=== PATIENT | male | born 1980 | race Caucasian/White ===

== ENCOUNTER 2016-04-27 12:56 | Observation (INO) | payer MEDICARE, OTHER ==
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
[~2016-04-27] VITALS: Ht 175.3 cm; Wt 74.0 kg
[~2016-04-27 12:56] MED LIST: NEOSTIGMINE 3 MG/3 ML SYR IV ONE; ONDANSETRON HCL 4 MG/2 ML VIAL IV PUSH ONE; PROPOFOL 200 MG/20 ML AMP IV ONE
[2016-04-27 13:55] VITALS: BP 132/81; PULSE 86; RESP 20; TEMP 97.9; O2SAT 98
[2016-04-27] MEDS ORDERED: LACTATED RINGER'S 1000 ML IV SCH (14:00)
[2016-04-27] MEDS ORDERED: SODIUM CHLORID 0.9% 500 ML IV SCH (14:00)
[2016-04-27] MEDS ORDERED: METOPROLOL TARTRATE 25 MG TAB PO PRN (14:00)
[2016-04-27] MEDS ORDERED: INSULIN HUMAN REGULAR 1,000 UNITS/10 ML VIAL SQ PRN (14:00)
[2016-04-27] MEDS ORDERED: ceFAZolin 1,000 MG/NS 100 ML IV SCH ×2 (14:15)
[2016-04-27] MEDS ORDERED: ceFAZolin INJ 1,000 MG VIAL ONE (15:09)
[2016-04-27] MEDS ORDERED: MIDAZOLAM HCL 2 MG/2 ML VIAL ONE (15:10)
[2016-04-27] MEDS ORDERED: FAMOTIDINE 20 MG/2 ML VIAL ONE (15:10)
[2016-04-27] MEDS ORDERED: LIDOCAINE 2%/EPINEPHrine 1:100,000 30ML MDV ONE (15:11)
[2016-04-27] MEDS ORDERED: BALANCED SALT SOLN OPHT IRRIG 15 ML BTL ONE (15:11)
--- NOTE | 2016-04-27 16:33 | HHI.PR ---
Immediate Post Op Note Procedure Date: Apr 27, 2016 Pre Op Diagnosis: right orbital floor fracture Post Op Diagnosis: mireya Surgeon: Laron Jin Acid Tender(s): lanny jacinto Procedure: open reconstruction of right orbital floor fracture with KLS mesh Complications: none Estimated blood loss: minimal Anesthesia: General, Local (2%lidocaine with 1:100, 000 epi x 1 cc) Drains: None Patient to: PACU Patient Condition: Good Laron Jin [facility] Apr 27, 2016 16:33
[2016-04-27] MEDS ORDERED: *morphine SULFATE 8 MG/ML PERIprocedure ONLY ONE ×3 (17:09→20:02)
[2016-04-27] MEDS ORDERED: methylPREDNISolone SOD SUCC 125 MG/2 ML VIAL ONE (19:41)
[2016-04-27] MEDS: methylPREDNISolone SOD SUCC 125 MG/2 ML VIAL IV SCH (19:45)
[2016-04-27] MEDS ORDERED: MORPHINE SULFATE 4 MG/ML INJ IV PUSH PRN (20:00)
[2016-04-27] MEDS ORDERED: SODIUM CHLOR 0.9% 1000 ML INJ 1,000 ML IV SCH (20:00)
[2016-04-27] MEDS ORDERED: ACETAMINOPHEN/HYDROcodone 325 MG/7.5 MG TAB PO PRN (20:00)
[2016-04-27] MEDS ORDERED: ONDANSETRON HCL 4 MG/2 ML VIAL IV PUSH PRN (20:00)
[2016-04-27] MEDS ORDERED: SODIUM CHLORIDE FLUSH PRN IVF (20:00)
[2016-04-27] MEDS ORDERED: DO NOT ADM ANY ANTICOAGULANT DRUGS XX PRN (20:15)
[2016-04-27 21:45] VITALS: BP 146/88; PULSE 77; RESP 18; TEMP 97.7; O2SAT 96
[2016-04-27] MEDS: SODIUM CHLORIDE FLUSH BID IVF SCH (23:00)
[2016-04-27] MEDS: ceFAZolin 1,000 MG/NS 100 ML IV SCH ×2 (23:00)
[2016-04-28 00:45] VITALS: BP 140/80; PULSE 76; RESP 18; TEMP 98; O2SAT 97
[2016-04-28] MEDS: methylPREDNISolone SOD SUCC 125 MG/2 ML VIAL IV SCH ×2 (02:00→09:04)
[2016-04-28 04:50] VITALS: BP 117/77; PULSE 64; RESP 17; TEMP 96.9; O2SAT 97
[2016-04-28] MEDS: ceFAZolin 1,000 MG/NS 100 ML IV SCH ×2 (06:01)
--- NOTE | 2016-04-28 07:58 | HHI.PR ---
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 last night sneezing and and small amount of blood came out form corner of right eye Objective Vital Signs Date Time Temp Pulse Resp B/P Pulse Ox O2 Delivery O2 Flow Rate FiO2 04/28/16 04:50 96.9 64 17 117/77 97 04/28/16 00:45 98.0 76 18 140/80 97 04/27/16 21:45 97.7 77 18 146/88 96 04/27/16 18:00 97.7 75 12 129/82 95 Room Air 04/27/16 17:45 88 12 132/87 96 Room Air 04/27/16 17:30 78 12 122/85 94 Room Air 04/27/16 17:15 76 15 133/82 92 Room Air 04/27/16 17:00 74 16 131/83 96 Nasal Cannula 2 04/27/16 16:45 75 14 128/83 93 Nasal Cannula 2 04/27/16 16:27 98.0 71 14 144/98 94 Nasal Cannula 2 04/27/16 13:55 97.9 86 20 132/81 98 I/O 04/27/16 04/27/16 04/27/16 04/28/16 04/28/16 04/28/16 07:00 15:00 23:00 07:00 15:00 23:00 Intake Total 1820 ml 900 ml Output Total 520 ml 600 ml Balance 1300 ml 300 ml Intake Oral 820 ml 900 ml IV Total 100 ml Other 900 ml Output Urine Total 500 ml 600 ml Estimated Blood Loss 20 ml # Voids 2 2 # Bowel Movements 0 0 Objective Remarks PERRLA/EOMI no entrapment, + good visual acuity, no blurry no double vision hemostatic, no edema, residual periorbital ecchymosis, with residual subconjunctival hemorrhage wound margins well approximated, lower eye lid in good position Assessment and Plan Assessment and Plan pod 1 s/p reconstruction of right orbital floor fracture with mesh ok to d/.c to home f/up [address] jin [phone] advance to regular diet as tolerated sinus precautions, no strenuous activity/exercises/bending over rx keflex 500 mg #21 and narco 5/325 #15 in chart Laron Jin DMD Apr 28, 2016 07:58
[2016-04-28] MEDS ORDERED: CEPH-460 PO (08:20)
[2016-04-28] MEDS ORDERED: NORC5TAB PO (08:20)
[2016-04-28] MEDS: SODIUM CHLORIDE FLUSH BID IVF SCH (09:04)
[2016-04-28] MEDS ORDERED: methylPREDNISolone ACETATE 80 MG/ML VIAL IM ONE (14:00)
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
[2016-04-29] MEDS ORDERED: PNEUMOCOCCAL POLYVALENT INJ 25 MCG/0.5 ML SYR IM ONE (10:00)
== END 2016-04-28 09:27 | disposition home or self-care (01) ==
LOC: HSDC 12:56 → N05A 21:00
PROVIDERS: ADMIT Dentist Oral and Maxillofacial Surgery; ATTEND Dentist Oral and Maxillofacial Surgery
DX: S02.31XA Fracture of orbital floor, right side, initial encounter for closed fracture (principal); H53.9 Unspecified visual disturbance; Y08.89XA Assault by other specified means, initial encounter; M91.10 Juvenile osteochondrosis of head of femur [Legg-Calve-Perthes], unspecified leg; F17.210 Nicotine dependence, cigarettes, uncomplicated; F12.90 Cannabis use, unspecified, uncomplicated
CPT/HCPCS: 00190; 21407; C1713; G0378; J0690; J2250; J2270; J2405; J2710; J2930; J3010; J7120

== ENCOUNTER → 2017-03-26 | Outpatient (CLI) | payer MEDICARE, OTHER ==
[2017-03-26 09:47] LABS: AUTOMATED NEUTROPHIL # 4.4 TH/MM3 (1.8-7.7); BASOPHIL % 0.2 % (0.0-2.0); EOSINOPHIL % 0.7 % (0.0-4.0); HEMATOCRIT 47.4 % (39.0-51.0); HEMO FLAGS DIFF FINAL; HEMOGLOBIN 16.8 GM/DL (13.0-17.0); LYMPH % 18.5 % (9.0-44.0); LYMPHOCYTE # 1.2 TH/MM3 (1.0-4.8); MEAN CORPUSCULAR HEMOGLOBIN 32.6 PG (27.0-34.0); MEAN CORPUSCULAR HGB CONC 35.4 % (32.0-36.0); MONO % 11.5 % (0.0-8.0); MONOCYTE # 0.7 TH/MM3 (0-0.9); NEUT % 69.1 % (16.0-70.0); PLATELET COUNT 166 TH/MM3 (150-450); RED BLOOD COUNT 5.15 MIL/MM3 (4.50-5.90); RED CELL DISTRIBUTION WIDTH 13.4 % (11.6-17.2); WHITE BLOOD COUNT 6.4 TH/MM3 (4.0-11.0)
[2017-03-26 10:13] LABS: ANION GAP 8 MEQ/L (5-15); BICARBONATE 26.1 MEQ/L (21.0-32.0); BLOOD UREA NITROGEN 11 MG/DL (7-18); CALCIUM 8.9 MG/DL (8.5-10.1); CHLORIDE 102 MEQ/L (98-107); CREATININE 0.88 MG/DL (0.60-1.30); GLOMERULAR FILTRATION RATE 98 ML/MIN (>89); GLUCOSE,FASTING 96 MG/DL (74-99); POTASSIUM 3.8 MEQ/L (3.5-5.1); SODIUM (NA) 136 MEQ/L (136-145)
[2017-03-26 10:16] LABS: BILIRUBIN, URINE NEG (NEG); BLOOD, URINE NEG (NEG); COMMENT (UR) CULT NOT INDICATED; CULTURE IF INDICATED CULT NOT INDICATED; GLUCOSE,URINE NEG (NEG); KETONE, URINE NEG (NEG); NITRITE,URINE NEG (NEG); URINE COLOR LIGHT-YELLOW (YELLW/STRAW); URINE LEUKOCYTE ESTERASE NEG (NEG)
== END ==
LOC: CPRE 08:19
DX: Z01.812 Encounter for preprocedural laboratory examination (principal); Z01.810 Encounter for preprocedural cardiovascular examination; M16.12 Unilateral primary osteoarthritis, left hip
CPT/HCPCS: 36415; 80048; 81001; 85025; 93005

== ENCOUNTER 2017-04-10 10:38 | Inpatient (IN) | payer MEDICARE, OTHER ==
[~2017-04-10] VITALS: Ht 175.3 cm; Wt 75.7 kg
[~2017-04-10 10:38] MED LIST changes: +FEXO180T PO; -NEOSTIGMINE 3 MG/3 ML SYR IV ONE; +NORC5TAB PO; -ONDANSETRON HCL 4 MG/2 ML VIAL IV PUSH ONE; -PROPOFOL 200 MG/20 ML AMP IV ONE
[2017-04-10] MEDS ORDERED: WARF-21 PO (11:16)
[2017-04-10] MEDS ORDERED: VANCOMYCIN 1 GM/200 ML INJ 200 ML IV ONE ×2 (11:38→11:41)
[2017-04-10] MEDS ORDERED: CHLORHEXIDINE GLUCONATE 2 % 1 PACK (2 CLOTHS) TOPICAL PRN (11:45)
[2017-04-10] MEDS ORDERED: POVIDONE IODINE 5% (ANTISEPSIS KIT) 4 APPLICATIONS EACH NARE PRN (11:45)
[2017-04-10] MEDS ORDERED: VANCOMYCIN 1000 MG/NS 250 ML (for <70 kg) IV SCH ×2 (11:45)
[2017-04-10] MEDS ORDERED: SODIUM CHLORID 0.9% 500 ML IV PRN (11:45)
[2017-04-10] MEDS ORDERED: CHLORHEXIDINE GLUCONATE 4% SOLN 120 ML BTL TOPICAL SCH (11:45)
[2017-04-10] MEDS ORDERED: METOPROLOL TARTRATE 25 MG TAB PO PRN (11:45)
[2017-04-10] MEDS ORDERED: ceFAZolin 2 GM PREMIX 50 ML IV SCH (11:45)
[2017-04-10] MEDS ORDERED: INSULIN HUMAN REGULAR 1,000 UNITS/10 ML VIAL SQ PRN (11:45)
[2017-04-10] MEDS ORDERED: LACTATED RINGER'S 1000 ML IV PRN (11:45)
[2017-04-10] MEDS ORDERED: GENTAMICIN SULFATE 80 MG/2 ML VIAL ONE (11:50)
[2017-04-10] MEDS ORDERED: ONDANSETRON HCL 4 MG/2 ML VIAL IV ONE (12:00)
[2017-04-10] MEDS ORDERED: DEXAMETHASONE SOD PHOS 4 MG/ML VIAL IV ONE (12:00)
[2017-04-10] MEDS ORDERED: GLYCOPYRROLATE 1 MG/5 ML SYRINGE IV PUSH ONE (12:00)
[2017-04-10] MEDS ORDERED: LACTATED RINGER'S 1000 ML INJ 1,000 ML IV ONE (12:00)
[2017-04-10] MEDS ORDERED: PROPOFOL 200 MG/20 ML AMP IV ONE (12:00)
[2017-04-10] MEDS ORDERED: ROCURONIUM INJ 50 MG/5 ML SYRINGE IV PUSH ONE (12:00)
[2017-04-10] MEDS ORDERED: NEOSTIGMINE 5 MG/5 ML SYRINGE IV PUSH ONE (12:00)
[2017-04-10] MEDS ORDERED: LIDOCAINE HCL 1% PF 5 ML SYRINGE OTHER ONE (12:00)
[2017-04-10] MEDS ORDERED: ACETAMINOPHEN 1000 MG/100 ML 100 ML IV ONE (12:58)
[2017-04-10] MEDS ORDERED: HYDROmorphone HCL PF 2 MG/ML VIAL ONE (12:59)
[2017-04-10] MEDS ORDERED: BUPIVACAINE/EPINEPHRINE 0.25% PF 30 ML VIAL ONE (13:33)
[2017-04-10] MEDS ORDERED: EXPAREL PERI-ARTICULAR INJECTION (TOTAL VOL. 60 ML) P-ARTICULR SCH ×2 (14:00)
[2017-04-10] MEDS ORDERED: SODIUM CHLORIDE 0.9% IV SCH (15:00)
[2017-04-10] MEDS ORDERED: TRANEXAMIC ACID IV SCH (15:00)
[2017-04-10] MEDS: LACTATED RINGER'S 1000 ML INJ 1,000 ML IV SCH (15:41)
[2017-04-10] MEDS ORDERED: Post-op Orders (for Pharmacy) XX ONE (15:45)
[2017-04-10] MEDS ORDERED: DO NOT ADM ANY ANTICOAGULANT DRUGS PRN (15:45)
[2017-04-10] MEDS ORDERED: ZOLPIDEM TARTRATE 5 MG TAB PO PRN (15:45)
[2017-04-10] MEDS ORDERED: ACETAMINOPHEN/HYDROcodone 325 MG/7.5 MG TAB PO PRN (15:45)
[2017-04-10] MEDS ORDERED: ONDANSETRON HCL 4 MG/2 ML VIAL IVP PRN (15:45)
[2017-04-10] MEDS ORDERED: ALUMINUM/MAGNESIUM/SIMETH 30 ML CUP PO PRN (15:45)
[2017-04-10] MEDS ORDERED: MIDAZOLAM HCL 2 MG/2 ML VIAL ONE (15:49)
--- NOTE | 2017-04-10 16:01 | RADRPT ---
EXAM DATE/TIME: 04/10/2017 14:02 [place] COMPARISON: No previous studies available for comparison. INDICATIONS : Left anterior hip replacement. MEDICAL HISTORY : Arthritis. Smoker. SURGICAL HISTORY : Nephrectomy, side unknown. ENCOUNTER: Initial ACUITY: 1 day PAIN SCORE: Non-responsive. LOCATION: Left anterior hip. CONCLUSION: Fluoroscopic images of left hip prosthesis. Reed Verduzco MD on April 10, 2017 at 15:58 Board Certified Radiologist. This report was verified electronically.
[2017-04-10] MEDS ORDERED: *MEPERIDINE 25 MG INJ VIAL PERIprocedural Use ONLY ONE (16:05)
[2017-04-10] MEDS ORDERED: *morphine SULFATE 10 MG/ML PERIprocedure ONLY ONE ×2 (16:28→17:19)
[2017-04-10 17:50] VITALS: BP 144/83; PULSE 87; RESP 18; TEMP 96.4; O2SAT 97
[2017-04-10] MEDS: ASPIRIN EC 81 MG TABEC PO SCH (18:51)
[2017-04-10] MEDS: ACETAMINOPHEN/HYDROcodone 325 MG/7.5 MG TAB PO PRN (19:40)
[2017-04-10 20:10] VITALS: BP 161/87; PULSE 102; RESP 17; TEMP 95.8; O2SAT 96
[2017-04-10] MEDS: MORPHINE SULFATE 8 MG/ML INJ IV PUSH PRN (21:29)
[2017-04-11 00:05] VITALS: BP 127/81; PULSE 78; RESP 17; TEMP 96.8; O2SAT 96
[2017-04-11] MEDS: ACETAMINOPHEN/HYDROcodone 325 MG/7.5 MG TAB PO PRN ×6 (00:08→21:52)
[2017-04-11 04:07] VITALS: BP 132/74; PULSE 75; RESP 17; TEMP 97.7; O2SAT 98
[2017-04-11] MEDS: LACTATED RINGER'S 1000 ML INJ 1,000 ML IV SCH ×2 (04:11→09:17)
[2017-04-11 07:37] VITALS: BP 118/84; PULSE 57; RESP 18; TEMP 96.6; O2SAT 98
[2017-04-11] MEDS ORDERED: WALKER WHEELS/F1 MIS (07:45)
--- NOTE | 2017-04-11 07:46 | HHI.FF ---
Face to Face Verification Diagnosis: (1) Osteoarthritis of left hip Physical Therapy Gait training, Transfer training, bed to chair Hip: Total hip, Protocol: Left Right LE Weight Bearing: WB as tolerated Left LE Weight Bearing: WB as tolerated Nursing RN: 3 days/week x 2 weeks Additional Instructions Leave dressing in place Aspirin 81 mg BID x 4 weeks I have seen patient Deni Singh on 04/11/17. My clinical findings support the need for the requested home health care services because: Deconditioned w/ increased weakness I certify that my clinical findings support that this patient is homebound because: Post-op weakness Zina Moreno Apr 11, 2017 07:46
--- NOTE | 2017-04-11 08:19 | PD.ORT.PN ---
Subjective Subjective Remarks pt doing well, ambulating with walker in room Objective Vitals Vital Signs Date Time Temp Pulse Resp B/P (MAP) Pulse Ox O2 Delivery O2 Flow Rate FiO2 04/11/17 07:37 96.6 57 18 118/84 (95) 98 04/11/17 04:07 97.7 75 17 132/74 (93) 98 04/11/17 00:05 96.8 78 17 127/81 (96) 96 04/10/17 20:10 95.8 102 17 161/87 (111) 96 04/10/17 17:50 96.4 87 18 144/83 (103) 97 04/10/17 17:00 87 17 136/74 (94) 98 Nasal Cannula 3 04/10/17 16:30 76 16 146/85 (105) 97 Nasal Cannula 3 04/10/17 16:15 80 20 147/84 (105) 98 Nasal Cannula 3 04/10/17 16:00 84 24 162/91 (114) 95 Nasal Cannula 3 04/10/17 15:45 93 17 162/103 (122) 100 Nasal Cannula 3 04/10/17 15:42 98.3 80 15 161/92 (115) 95 Nasal Cannula 3 04/10/17 11:32 98.6 80 18 131/78 (95) 96 I/O 04/10/17 04/10/17 04/10/17 04/11/17 04/11/17 04/11/17 07:00 15:00 23:00 07:00 15:00 23:00 Intake Total 1200 ml 360 ml 480 ml Output Total 3650 ml 1625 ml Balance -2450 ml 360 ml -1145 ml Intake Oral 360 ml 480 ml IV Total 1200 ml Output Urine Total 1625 ml Estimated Blood Loss 400 ml Other 3250 ml # Voids 1 # Bowel Movements 0 0 Objective Remarks ambulating well in room with walker left hip dressing dry and intact no calf tenderness Assessment & Plan Assessment and Plan POD # 1 s/p L anterior SONIYA aspirin 81 mg BID x 4 weeks dvt prop PT-WBAT discharge home today with hcc, orthopedically stable Zina Moreno Apr 11, 2017 08:19
[2017-04-11 09:05] LABS: INTERNATIONAL NORMALIZED RATIO 1.6 RATIO; PROTHROMBIN TIME - PATIENT 16.1 SEC (9.8-11.6)
[2017-04-11] MEDS: LORATADINE 10 MG TAB PO SCH (09:17)
[2017-04-11] MEDS: ASPIRIN EC 81 MG TABEC PO SCH ×2 (09:17→20:10)
[2017-04-11 11:31] VITALS: BP 138/80; PULSE 87; RESP 18; TEMP 96.1; O2SAT 97
[2017-04-11] MEDS: MORPHINE SULFATE 8 MG/ML INJ IV PUSH PRN ×3 (12:59→20:16)
[2017-04-11 15:37] VITALS: BP 149/97; PULSE 91; RESP 18; TEMP 96.7; O2SAT 99
[2017-04-11 19:29] VITALS: BP 141/79; PULSE 86; RESP 18; TEMP 96.7; O2SAT 98
[2017-04-11] MEDS: DOCUSATE SODIUM 100 MG CAP PO SCH (20:10)
[2017-04-12 00:08] VITALS: BP 124/88; PULSE 82; RESP 18; TEMP 96.7; O2SAT 96
[2017-04-12] MEDS: ACETAMINOPHEN/HYDROcodone 325 MG/7.5 MG TAB PO PRN ×3 (01:45→09:29)
[2017-04-12] MEDS: LACTATED RINGER'S 1000 ML INJ 1,000 ML IV SCH (01:45)
[2017-04-12 07:04] LABS: INTERNATIONAL NORMALIZED RATIO 1.2 RATIO
--- NOTE | 2017-04-12 07:11 | PD.ORT.PN ---
Subjective Subjective Remarks POD#2 L THR Good improvement on post op pain today No SOB;no chest pain Objective Vitals Vital Signs Date Time Temp Pulse Resp B/P (MAP) Pulse Ox O2 Delivery O2 Flow Rate FiO2 04/12/17 00:08 96.7 82 18 124/88 (100) 96 04/11/17 20:21 18 04/11/17 19:29 96.7 86 18 141/79 (99) 98 04/11/17 15:37 96.7 91 18 149/97 (114) 99 04/11/17 11:31 96.1 87 18 138/80 (99) 97 04/11/17 07:37 96.6 57 18 118/84 (95) 98 I/O 04/11/17 04/11/17 04/11/17 04/12/17 04/12/17 04/12/17 07:00 15:00 23:00 07:00 15:00 23:00 Intake Total 480 ml 900 ml 360 ml 360 ml Output Total 1625 ml 400 ml Balance -1145 ml 900 ml 360 ml -40 ml Intake Oral 480 ml 900 ml 360 ml 360 ml Output Urine Total 1625 ml 400 ml # Voids 3 3 # Bowel Movements 0 0 0 Other Results Laboratory Tests Test 04/11/17 08:18 04/12/17 06:00 Prothromb Time International Ratio 1.6 RATIO 1.2 RATIO Prothrombin Time 16.1 SEC (9.8-11.6) 12.0 SEC (9.8-11.6) Objective Remarks ambulating well in room with walker; left hip dressing dry and intact; no calf tenderness;neg natacha's Assessment & Plan Assessment and Plan POD # 2 s/p L anterior SNOIYA aspirin EC 81 mg BID x 4 weeks,TEDS dvt prophylaxsis PT-WBAT discharge home today with hcc, orthopedically stable Min Perera MD Apr 12, 2017 07:11
[2017-04-12] MEDS ORDERED: HYDR-3288 PO (07:45)
[2017-04-12] MEDS ORDERED: ASPI81TA23 PO (07:45)
[2017-04-12 08:00] VITALS: BP 139/79; PULSE 76; RESP 18; TEMP 97.5; O2SAT 96
[2017-04-12] MEDS: DOCUSATE SODIUM 100 MG CAP PO SCH (09:28)
[2017-04-12] MEDS: ASPIRIN EC 81 MG TABEC PO SCH (09:28)
[2017-04-12] MEDS: LORATADINE 10 MG TAB PO SCH (09:28)
--- NOTE | 2017-04-20 13:46 | PD.OP ---
cc: Min Perera MD; Yamil Perera MD Operative Report Date of Surgery: Apr 10, 2017 Preoperative Diagnosis: Osteoarthritis left hip Postoperative Diagnosis: Same Procedure: Left total hip replacement arthroplasty, direct anterior exposure Anesthesia: General Surgeon: Yamil Perera Developer Advisor(s): Min Perera M.D. Operation and Findings: EBL: 300 cc. INDICATION: This patient is a 36 -year-old male with severe deformity of the left femoral head, likely consistent with a childhood disorder. The patient has collapse and severe osteoporosis with restricted motion of the left hip. He presents for surgical treatment. MEDICAL DOCTOR MD: Dr. Min Perera was present during the entire surgical procedure as my assistant research scientist. In my medical opinion his skill and care was to strip for the proper management of this patient. COMPONENTS: Company: [employer] Cup: 54 mm, 100 series. Head: Ceramic, 32 mm, +1. Stem: Corail, size 11, high offset. SURGERY: The patient was brought to the operating room and anesthetized in the supine position. The left hip and leg was scrubbed with alcohol followed by Hibiclens followed by ChloraPrep and draped sterilely in the clean air suite on the Taylor table. Both legs were held extended. Antibiotics were given within a 1 hour time window. A 4 inch incision was made starting 2 cm distal and 2 cm lateral to the anterior superior iliac spine. The fascia hudson was opened. The interval between the fascia hudson and the rectus muscle was opened. The posterior portion of the fascia hudson was opened. The anterior hip capsule was identified. This was opened and stay sutures were positioned. The femoral neck was cut at the right location. The femoral head was removed. Deep retractors allowed good visualization. The acetabulum was deepened first with a 48 mm reamer and progressively reamed to 53 mm. A trial was utilized. Intraoperative fluoroscopy was utilized. The rim was touched with a 54 mm reamer and a final 54 mm 100 series full-radius shell was impacted in approximately 40 of abduction and 20 of forward flexion. A 32 mm all tracts liner was positioned. This was a neutral liner. The attention was directed to the femur. We used the lifting hook with maximal external rotation. Retractors were positioned. The canal was opened with a box osteotome followed by progressive broaching to an 11 stem. Trial reduction showed that offset and leg length were re-created with a +1 neck length. The final stem was impacted. Stability was excellent. The hip was reduced with the final head. Intraoperative x-rays were obtained. The wound was irrigated copiously. Hemostasis was controlled. Local anesthesia was utilized. The anterior capsule was repaired with interrupted #2 Tycron sutures. The fascia hudson with running 0 PDS on a loupe. Subcutaneous tissue with 2-0 Vicryl followed by running intradermal 3-0 Vicryl and Steri- Strips. A sterile dressing was applied through the patient was awakened and taken to the recovery room in satisfactory condition. No complication was appreciated. Yamil Perera MD Apr 20, 2017 13:46
== END 2017-04-12 11:12 | disposition home health service (06) | DRG 470 ==
LOC: HSDI 10:38 → N06B 17:39
PROVIDERS: ADMIT Orthopaedic Surgery Orthopaedic Surgery of the Spine; ATTEND Orthopaedic Surgery Orthopaedic Surgery of the Spine
PROC: 0SRB03A Replacement of Left Hip Joint with Ceramic Synthetic Substitute, Uncemented, Open Approach (ICD-10-PCS; principal; 2017-04-10 13:01)
DX: M16.12 Unilateral primary osteoarthritis, left hip (principal); E78.5 Hyperlipidemia, unspecified; F17.210 Nicotine dependence, cigarettes, uncomplicated; M81.0 Age-related osteoporosis without current pathological fracture; M21.952 Unspecified acquired deformity of left thigh
CPT/HCPCS: 73502; 76000; 76937; 85610; 86850; 86900; 86901; 86920; 94150; C1776; C9290; J0131; J0690; J1100; J1170; J1580; J2175; J2250; J2270; J2405; J2710; J3010; J3370; J7050; J7120